=== PATIENT | female | born 1975 | race Caucasian/White ===

== ENCOUNTER → 2018-06-26 13:24 | Outpatient (CLI) | payer MEDICAID, SELFPAY ==
[2018-06-26 14:34] LABS: HCT 40.4 % (36.0-46.0); HGB 13.4 g/dL (12.0-15.5); Mean Corp. HGB Concentration 33.2 g/dL (32.0-36.0); Mean Corpuscular Hemoglobin 32.3 pg (27.0-33.0); Mean Corpuscular Volume 97.3 fL (80-95); Platelet Count 244 x1000/uL (130-400); RBC 4.15 m/cumm (4.00-5.20); RBC Distribution Width 13.6 % (11.7-14.6); White Blood Cell Count 9.68 k/cumm (4.4-10.8)
[2018-06-26 14:48] LABS: HCG Quant, Pregnancy 1 mIU/mL (1-3)
== END ==
PROVIDERS: PCP Family Medicine; Visit Provider Obstetrics & Gynecology
DX: N87.1 Moderate cervical dysplasia (principal)
CPT/HCPCS: 36415; 85027; 86850; 86900; 86901; 86920; 84702

== ENCOUNTER 2018-08-14 17:31 | Emergency (ER) | payer MEDICAID, SELFPAY ==
[2018-08-14 18:38] VITALS: BP 125/63; PULSE 105; RESP 22; TEMP 38.5; O2SAT 100
[2018-08-14 18:59] LABS: Bilirubin Negative (Negative); Blood Small (Negative); Clarity Sl Cloudy; Glucose Negative (Negative); Ketones 40 mg/dL (Negative); Leukocyte Esterase Small (Negative); Nitrite Negative (Negative); Specific Gravity 1.015 (1.005-1.025)
--- NOTE | 2018-08-14 19:06 | DI.RAD_ITS ---
SYMPTOMS/DIAGNOSIS: COUGH, SOB CHEST X-RAY, PA AND LATERAL: Comparison is 06/11/08. The heart is normal in size. The lungs are clear. The mediastinal structures and pleura appear intact. IMPRESSION: Normal chest.
[2018-08-14 19:12] LABS: Bacteria Few HPF (Negative); C & S Indicated? Yes; Casts Negative LPF (Negative); Crystals Negative HPF (Negative); Epithelial Cells Rare HPF (Negative); Mucus Negative (Negative); Other Cells Negative (Negative)
[2018-08-14] MEDS: Ketorolac 30 MG/ML VIAL IV (19:15)
[2018-08-14] MEDS: Normal Saline 1,000 ML 1000 ML IV ×2 (19:16→20:12)
[2018-08-14 19:17] LABS: Abs Immature Grans 0.06 k/cumm (0.0-0.09); Absolute Eosinophil Count 0.02 k/cumm (0.0-0.7); Absolute Monocyte Count 1.64 k/cumm (0.11-0.7); Basophils % 0.1; Eosinophils % 0.1; HCT 36.5 % (36.0-46.0); HGB 12.3 g/dL (12.0-15.5); Immature Grans % 0.4; Lymphocytes % 8.5; Mean Corp. HGB Concentration 33.7 g/dL (32.0-36.0); Mean Corpuscular Hemoglobin 32.4 pg (27.0-33.0); Mean Corpuscular Volume 96.1 fL (80-95); Monocytes % 9.6; Neutrophils % 81.3; Platelet Count 161 x1000/uL (130-400); RBC Distribution Width 13.2 % (11.7-14.6); White Blood Cell Count 17.04 k/cumm (4.4-10.8)
[2018-08-14 19:30] LABS: ALT 20 U/L (12-78); AST 11 U/L (15-37); Albumin 3.4 g/dL (3.4-5.0); Alkaline Phosphatase 80 U/L (46-116); Anion Gap 10.9 mmol/L (3-11); BUN 9 mg/dL (7-18); Bilirubin, Total 0.6 mg/dL (0.2-1.0); CO2 27.1 mmol/L (21.0-32.0); CREATININE 0.92 mg/dL (0.55-1.02); Calcium 9.3 mg/dL (8.5-10.1); Chloride 97 mmol/L (98-107); Glucose 101 mg/dL (70-100); Potassium 3.5 mmol/L (3.5-5.1); Sodium 135 mmol/L (136-145); Total Protein 7.7 g/dL (6.4-8.2)
[2018-08-14 19:32] LABS: Absolute Basophil Count 0.02 k/cumm (0.0-0.2); Absolute Lymphocyte Count 1.45 k/cumm (1.2-3.4); Absolute Neutrophil Count 13.85 k/cumm (1.2-6.7); Diff Comment Agrees w/ Instrument; RBC Morphology Normal
--- NOTE | 2018-08-14 19:43 | DI.VRAD_ITS ---
EXAM: XR Chest, 2 Views EXAM DATE/TIME: 08/14/2018 7:07 PM CLINICAL HISTORY: 42 years old, female; Signs and symptoms; Cough and fever TECHNIQUE: XR of the chest, 2 views. COMPARISON: No relevant prior studies available. FINDINGS: Lungs: Clear lungs. Pleural space: No pneumothorax. No sizable pleural effusion. Heart/Mediastinum: No cardiomegaly. Bones/joints: Unremarkable for patient's age. IMPRESSION: Clear lungs. Dictated and Authenticated by: Omar Lopez MD. Ordering:CORNELIO ARRIAGA MD
[2018-08-14 20:12] VITALS: TEMP 38.2
[2018-08-14 20:14] LABS: Lactate-non-spesis 0.7 mmol/L (0.6-1.4)
[2018-08-14 20:20] VITALS: TEMP 37.4
[2018-08-14] MEDS: Acetaminophen 500 MG TAB 1000 MG PO (20:20)
[2018-08-14 21:30] VITALS: BP 112/51; PULSE 88; RESP 16; TEMP 36.9; O2SAT 98
--- NOTE | 2018-08-14 21:59 | W.ED.GENAD ---
Discharge Plan Disposition Patient Disposition: HOME Condition: Good Discharge Details Chief Complaint: Fever Clinical Impression: UTI (urinary tract infection), URI (upper respiratory infection) Primary Care Provider: Maria Isabel Oswald V ED Provider: Terence Powell Home Meds and New Rx's Prescriptions: New cephalexin [Keflex] 500 mg capsule 500 mg PO BID Qty: 20 RF: 0 No Action loratadine 10 MG tablet,disintegrating 10 mg PO DAILY RF: 0 cholecalciferol (vitamin D3) 2,000 UNIT tablet 2,000 unit PO DAILY RF: 0 levonorgestrel [Mirena] 1 EACH intrauterine device 1 ea Intrauterine ONCE Qty: 1 RF: 0 fluoxetine 40 MG capsule 40 mg PO QAM RF: 0 ascorbic acid (vitamin C) [Vitamin C] 500 MG tablet 500 mg PO DAILY RF: 0 fluticasone [Flonase Allergy Relief] 9.9 ML spray,suspension 1 spray NS BID PRNRF: 0 ibuprofen 800 MG tablet 400 mg PO TID PRN PRNRF: 0 Discharge Instructions Instructions: Urinary Tract Infection in Women (ED), Upper Respiratory Infection (ED) Additional Instructions: Please drink 8-12 cups of water per day. Please take the antibiotic as directed. Please follow-up with your primary care provider tomorrow for reassessment. If you notice any worsening of your symptoms, or any new symptoms such as vomiting, diarrhea, fever, chills, shortness of breath, chest pain, numbness, weakness, or fainting , please return immediately to the emergency department for reevaluation. Please follow up with your primary care provider as soon as possible for reassessment and reevaluation. As always, it was a pleasure participating in your medical care today. Stand Alone Forms: Work Release Referrals: Maria Isabel Oswald MD [Primary Care Provider] - Medical Decision Making Potential with a past medical history of lupus who is on no DMARD's or immunocompromising agents for her lupus, and fibromyalgia who presents with 3 days of chills, mild sore throat, cough, with productive sputum. Initial physical exam demonstrates no significant abnormalities except for mild to moderate signs of dehydration, minimal referred rhonchorous upper breath sounds which are resolved with cough. She does show signs of mild congestion as well. No signs of meningitis, no evidence of abdominal or flank tenderness. Initial vital signs demonstrate mild tachycardia, mild fever. Laboratory workup does demonstrate an elevated white count at 17, no signs of bands. Normal electrolytes, renal function stable and normal. Urinalysis does demonstrate evidence of moderate urinary tract infection with small leuk esterase. Negative for nitrates. Chest x-ray per virtual radiology demonstrates clear lungs. No evidence of pneumonia. After rehydration and Toradol the patient's fever is normalized, her vital signs are stable, she is feeling much better. We did get Rocephin for her urinary tract infection. I discussed with her potential observation and admission versus discharge and the patient is requesting discharge which I do think is reasonable at this point. I feel the patient's symptoms are most likely from a viral upper respiratory infection, with an incidental urinary tract infection. We will treat for the UTI, we recommended continued hydration, Tylenol Motrin as needed, and prompt follow-up with her PCP tomorrow morning. The patient understands and agrees. No signs of meningitis, normal vital signs, no evidence of significant pneumonia, they feel that she is a reasonable candidate for discharge home. We discussed red flags for which to return. I have extensively reviewed the treatment plan and discharge instructions with the patient. I have addressed all patient concerns at this time. The patient was made aware of what symptoms to monitor for that would warrant a return to the emergency department. Discussed the plan with the patient, they demonstrate verbal understanding and agreement with our assessment and plan at this time. HPI General Date/Time Provider Initiated Documentation: 08/14/18 19:05. HPI Narrative: This is a 42-year-old female with a past medical history of fibromyalgia, lupus, recent uterine ablation. She presents today for evaluation of upper respiratory symptoms for the last 3 days. She states that for the last 3 days she has had chills, cough with productive sputum, runny nose, congestion, and a fever with a T-max of 103 at home. She denies any significant headache, or neck pain. She does admit to increased urinary frequency but denies any dysuria or hematuria. She does admit to other sick contacts at home and at her work. She has been drinking plenty of water over the last 2-3 days. She does admit to mild sore throat as well. Patient denies any vomiting, abdominal pain, diarrhea. She denies any chest pain or significant shortness of breath. She denies any recent antibiotic use, recent surgeries or procedures or long trips. Patient denies any IV or illicit drugs. She denies any other complaints at this time. Related Data Home Medications Medication Instructions Recorded Confirmed loratadine 10 mg PO DAILY tab-cap 03/21/13 08/14/18 cholecalciferol (vitamin D3) 2,000 unit PO DAILY 08/10/15 08/14/18 levonorgestrel [Mirena] 1 ea INTRAUTERINE ONCE #1 implant 05/30/18 08/14/18 ascorbic acid (vitamin C) [Vitamin 500 mg PO DAILY 06/22/18 08/14/18 C] fluoxetine 40 mg PO QAM 06/22/18 07/10/18 fluticasone [Flonase Allergy 1 spray NS BID PRN 06/22/18 08/14/18 Relief] cephalexin [Keflex] 500 mg PO BID #20 cap 08/14/18 ibuprofen 400 mg PO TID PRN PRN 08/14/18 08/14/18 Previous Rx's Medication Instructions Recorded cephalexin [Keflex] 500 mg PO BID #20 cap 08/14/18 Allergies Allergy/AdvReac Type Severity Reaction Status Date / Time SEASONAL ALLERGIES Allergy Mild CHEST Uncoded 08/14/18 18:45 CONGESTION, SNEEZING General Stated Complaint: Fever CHEMA: 2 Review of Systems Review of Systems All systems reviewed & are unremarkable except as noted in HPI and below PFSH Medical History ANKUSH II (cervical intraepithelial neoplasia II) (Acute) Hx LEEP (loop electrosurgical excision procedure), cervix, (Acute) Depressed (Chronic) Social History Smoking/Tobacco Use Status: Current every day tobacco type: cigarettes passive smoking exposure: Yes substance use type: marijuana seatbelt use: always Exam Narrative Exam Narrative: 1.Const: Well-nourished, Well-developed, appearing stated age 2.Eyes: PERRL, no conjunctival injection, and symmetrical lids. 3.ENT: Atraumatic external nose and ears. Dry MM. Neck: Symmetric, trachea midline, No thyromegaly. Patient demonstrates good movement of cervical neck. There is no nuchal rigidity, no nuchal tenderness. Patient is able to flex the neck without any difficulty or significant pain. Negative Kernig's and Brudzinski sign. Evidence of mild congestion. Mild erythema the posterior oropharynx. No evidence of tonsillar exudate. No signs of airway compromise. No evidence of peritonsillar abscess. 4.CVS: +S1/S2, No murmurs or gallops. Peripheral pulses 2+ and equal in all extremities. Brisk capillary refill in all extremities. 5.RESP: Unlabored respiratory effort. Clear to auscultation bilaterally. No wheezes rales or rhonchi. Minimal upper respiratory referred rhonchorous breath sounds are noted resolved with cough. 6.GI: Soft, Nontender/Nondistended, No hepatosplenomegaly. No guarding or rebound. No flank tenderness. 7.MSK: Normocephalic/Atraumatic, Extremities w/o deformity or ttp No cyanosis or clubbing, Normal movement of all extremities 8.Skin: Warm, Dry. No rashes or lesions. 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 Sensation grossly intact, no focal neurologic deficits. 10.Psych: (AAO) x3. Appropriate mood and affect Course Vital Signs Temperature 38.5 C H 08/14/18 18:38 Pulse 105 H 08/14/18 18:38 Respiratory Rate 22 08/14/18 18:38 Blood Pressure 125/63 08/14/18 18:38 Pulse Oximetry 100 08/14/18 18:38 Temperature 36.9 C 08/14/18 21:30 Temperature Source Skin 08/14/18 20:20 Pulse 88 08/14/18 21:30 Respiratory Rate 16 08/14/18 21:30 Respiratory Effort 08/14/18 18:40 Blood Pressure 112/51 L 08/14/18 21:30 Blood Pressure Position Supine 08/14/18 18:38 Pulse Oximetry 98 08/14/18 21:30 Oxygen Delivery Method Room Air 08/14/18 18:38 Oxygen Flow Rate 0 08/14/18 18:38 Pain Level 0 08/14/18 18:38 Lab/Test Results Lab/Test Results: 08/14/18 19:45 Blood Blood Culture - Pending 08/14/18 19:08 Blood Blood Culture - Pending 08/14/18 18:53 Urine - Reflex from Ua Urine Culture - Pending Laboratory Tests Range/Units 08/14/18 08/14/18 08/14/18 18:53 19:08 19:08 WBC (4.4-10.8) k/cumm 17.04 H RBC (4.00-5.20) m/cumm 3.80 L Hgb (12.0-15.5) g/dL 12.3 Hct (36.0-46.0) % 36.5 MCV (80-95) fL 96.1 H MCH (27.0-33.0) pg 32.4 MCHC (32.0-36.0) g/dL 33.7 RDW (11.7-14.6) % 13.2 Plt Count (130-400) x1000/uL 161 MPV (8.0-11.0) fL 11.0 Immature Gran % 0.4 Neutrophils % 81.3 Lymphocytes % 8.5 Monocytes % 9.6 Eosinophils % 0.1 Basophils % 0.1 Absolute Neutrophils (1.2-6.7) k/cumm 13.85 H Absolute Lymphocytes (1.2-3.4) k/cumm 1.45 Absolute Monocytes (0.11-0.7) k/cumm 1.64 H Absolute Eosinophils (0.0-0.7) k/cumm 0.02 Absolute Basophils (0.0-0.2) k/cumm 0.02 Differential Comment Agrees w/ instrument RBC Morphology Normal Sodium (136-145) mmol/L 135 L Potassium (3.5-5.1) mmol/L 3.5 Chloride (98-107) mmol/L 97 L Carbon Dioxide (21.0-32.0) mmol/L 27.1 Anion Gap (3-11) mmol/L 10.9 BUN (7-18) mg/dL 9 Creatinine (0.55-1.02) mg/dL 0.92 Estimated GFR/1.73 m2 (mL/min/1.73m2) >= 60.00 Glucose (70-100) mg/dL 101 H Lactate (0.6-1.4) mmol/L Calcium (8.5-10.1) mg/dL 9.3 Total Bilirubin (0.2-1.0) mg/dL 0.6 AST (15-37) U/L 11 L ALT (12-78) U/L 20 Alkaline Phosphatase (46-116) U/L 80 Total Protein (6.4-8.2) g/dL 7.7 Albumin (3.4-5.0) g/dL 3.4 Urine Color (Yellow) Yellow Urine Clarity Sl cloudy Urine pH (5-8) 8.0 Ur Specific [employer] (1.005-1.025) 1.015 Urine Protein (Negative) mg/dL 100 H Urine Ketones (Negative) mg/dL 40 H Urine Blood (Negative) Small H Urine Nitrite (Negative) Negative Urine Bilirubin (Negative) Negative Urine Urobilinogen (Up TO 0.2) EU/dL 4.0 H Ur Leukocyte Esterase (Negative) Small H Urine RBC (0-2) 3-5 H Urine WBC (0-5) HPF 10-20 Ur Epithelial Cells (Negative) HPF Rare Urine Crystals (Negative) HPF Negative Urine Bacteria (Negative) HPF Few Urine Casts (Negative) LPF Negative Urine Mucus (Negative) Negative Urine Other (Negative) Negative Ur Culture Indicated? Yes Urine Glucose (Negative) mg/dL Negative Range/Units 08/14/18 20:05 WBC (4.4-10.8) k/cumm RBC (4.00-5.20) m/cumm Hgb (12.0-15.5) g/dL Hct (36.0-46.0) % MCV (80-95) fL MCH (27.0-33.0) pg MCHC (32.0-36.0) g/dL RDW (11.7-14.6) % Plt Count (130-400) x1000/uL MPV (8.0-11.0) fL Immature Gran % Neutrophils % Lymphocytes % Monocytes % Eosinophils % Basophils % Absolute Neutrophils (1.2-6.7) k/cumm Absolute Lymphocytes (1.2-3.4) k/cumm Absolute Monocytes (0.11-0.7) k/cumm Absolute Eosinophils (0.0-0.7) k/cumm Absolute Basophils (0.0-0.2) k/cumm Differential Comment RBC Morphology Sodium (136-145) mmol/L Potassium (3.5-5.1) mmol/L Chloride (98-107) mmol/L Carbon Dioxide (21.0-32.0) mmol/L Anion Gap (3-11) mmol/L BUN (7-18) mg/dL Creatinine (0.55-1.02) mg/dL Estimated GFR/1.73 m2 (mL/min/1.73m2) Glucose (70-100) mg/dL Lactate (0.6-1.4) mmol/L 0.7 Calcium (8.5-10.1) mg/dL Total Bilirubin (0.2-1.0) mg/dL AST (15-37) U/L ALT (12-78) U/L Alkaline Phosphatase (46-116) U/L Total Protein (6.4-8.2) g/dL Albumin (3.4-5.0) g/dL Urine Color (Yellow) Urine Clarity Urine pH (5-8) Ur Specific [employer] (1.005-1.025) Urine Protein (Negative) mg/dL Urine Ketones (Negative) mg/dL Urine Blood (Negative) Urine Nitrite (Negative) Urine Bilirubin (Negative) Urine Urobilinogen (Up TO 0.2) EU/dL Ur Leukocyte Esterase (Negative) Urine RBC (0-2) Urine WBC (0-5) HPF Ur Epithelial Cells (Negative) HPF Urine Crystals (Negative) HPF Urine Bacteria (Negative) HPF Urine Casts (Negative) LPF Urine Mucus (Negative) Urine Other (Negative) Ur Culture Indicated? Urine Glucose (Negative) mg/dL
== END 2018-08-14 21:20 | disposition home or self-care (01) ==
PROVIDERS: Emergency Provider Student in an Organized Health Care Education/Training Program; PCP Family Medicine
DX: N39.0 Urinary tract infection, site not specified (principal); J06.9 Acute upper respiratory infection, unspecified; B96.20 Unspecified Escherichia coli [E. coli] as the cause of diseases classified elsewhere; F17.210 Nicotine dependence, cigarettes, uncomplicated
CPT/HCPCS: 36415; 80053; 87040; 87077; 96361; 96365; 96375; 99284; 71046; 81003; 81015; 83605; 85025; 87086; 87186; 99285; J0696; J1885

== ENCOUNTER 2018-09-10 08:31 | Emergency (ER) | payer MEDICAID, SELFPAY ==
[2018-09-10 08:36] VITALS: BP 138/98; PULSE 87; RESP 18; TEMP 36.6; O2SAT 97
--- NOTE | 2018-09-10 08:44 | NUR.NOTE ---
pt. placed in mask.
--- NOTE | 2018-09-10 09:14 | W.ED.GENAD ---
Discharge Plan Disposition Patient Disposition: HOME Condition: Stable Discharge Details Chief Complaint: RespSymp Clinical Impression: Otitis media of right ear, URI (upper respiratory infection) Primary Care Provider: Maria Isabel Oswald V ED Provider: Sanket Wellington Home Meds and New Rx's Prescriptions: New amoxicillin 875 mg tablet 875 mg PO BID Qty: 14 RF: 0 Continue loratadine 10 MG tablet,disintegrating 10 mg PO DAILY RF: 0 cholecalciferol (vitamin D3) 2,000 UNIT tablet 2,000 unit PO DAILY RF: 0 levonorgestrel [Mirena] 1 EACH intrauterine device 1 ea Intrauterine ONCE Qty: 1 RF: 0 fluoxetine 40 MG capsule 40 mg PO QAM RF: 0 ascorbic acid (vitamin C) [Vitamin C] 500 MG tablet 500 mg PO DAILY RF: 0 fluticasone [Flonase Allergy Relief] 9.9 ML spray,suspension 1 spray NS BID PRNRF: 0 ibuprofen 800 MG tablet 400 mg PO TID PRN PRNRF: 0 Discontinued cephalexin [Keflex] 500 mg capsule 500 mg PO BID Qty: 20 RF: 0 Discharge Instructions Instructions: Otitis Media (ED), Upper Respiratory Infection (ED) Additional Instructions: Please feel free to return the emergency department for any new or significant worsening of symptoms. Otherwise take your antibiotics as prescribed and for the full 7 days and follow-up with your primary care as needed for reassessment Stand Alone Forms: Work Release Referrals: Maria Isabel Oswald MD [Primary Care Provider] - (As needed for reassessment if not improving by the end of your antibiotic course) Medical Decision Making Patient presenting to the emergency department for 3 days of nasal congestion, malaise, right ear pain, and sore throat. Patient has history of lupus and does state that she had a viral illness a month ago that resolved in 1 week and has been feeling good for the past couple weeks but on Monday she started feeling ill again. staffing associate initiated protocol for rapid strep testing which was reviewed and is negative. Physical exam does show nasal congestion, right bulging erythematous TM and mild anterior cervical lymphadenopathy otherwise unremarkable examination. No signs of pneumonia on auscultation of the lungs. Given patient has used Motrin over the past 3 days and still having earache with positive symptoms for otitis media patient placed upon amoxicillin. Patient encouraged to return for any new or significant worsening of symptoms otherwise to follow-up with primary care provider for reassessment if not improving. After discussion of diagnosis and plan of care patient has no further needs, questions, or concerns and states clear understanding to return to the emergency department for any worsening symptoms. Lab Data Lab results reviewed: Yes I reviewed the patient's lab results. HPI General Mode of arrival: ambulatory. Date/Time Provider Initiated Documentation: 09/10/18 09:01. Limitations to Documentation: no limitations. Information obtained by: RN notes reviewed and old records reviewed. History of Present Illness 42 year old F presents to the emergency department with the chief complaint of Cold symptoms, described as mild, with intensity rated at 4. Quality is described as aching, and is localized to the right (ear). Patient reports no radiation. Patient started experiencing this day(s) (4) and it has been constant. No relieving factors improve symptom(s), Patient notes no other symptoms.. Patient did receive the following treatments prior to arrival, NSAID Related Data Home Medications Medication Instructions Recorded Confirmed loratadine 10 mg PO DAILY tab-cap 03/21/13 09/10/18 cholecalciferol (vitamin D3) 2,000 unit PO DAILY 08/10/15 09/10/18 levonorgestrel [Mirena] 1 ea INTRAUTERINE ONCE #1 implant 05/30/18 09/10/18 ascorbic acid (vitamin C) [Vitamin 500 mg PO DAILY 06/22/18 09/10/18 C] fluoxetine 40 mg PO QAM 06/22/18 09/10/18 fluticasone [Flonase Allergy 1 spray NS BID PRN 06/22/18 09/10/18 Relief] ibuprofen 400 mg PO TID PRN PRN 08/14/18 09/10/18 amoxicillin 875 mg PO BID #14 tab 09/10/18 Previous Rx's Medication Instructions Recorded amoxicillin 875 mg PO BID #14 tab 09/10/18 Allergies Allergy/AdvReac Type Severity Reaction Status Date / Time SEASONAL ALLERGIES Allergy Mild CHEST Uncoded 08/14/18 18:45 CONGESTION, SNEEZING General Stated Complaint: RespSymp CHEMA: 4 Review of Systems Constitutional Denies body ache(s), Denies chills, Denies fever(s), Denies headache(s) and Reports malaise Eyes Denies eye discharge ENT Denies ear discharge, Reports otalgia, Denies headache(s), Reports nasal congestion, Denies neck pain, Reports sinus pressure, Reports sore throat and Denies throat swelling Cardiovascular Denies chest pain and Denies dyspnea Respiratory Denies cough and Denies dyspnea Musculoskeletal Denies joint swelling and Denies neck pain Integumentary/Breasts Denies rash Neurologic Denies headache(s) Allergic/Immunologic Denies throat swelling [facility] Medical History ANKUSH II (cervical intraepithelial neoplasia II) (Acute) Hx LEEP (loop electrosurgical excision procedure), cervix, (Acute) Depressed (Chronic) Social History Smoking/Tobacco Use Status: Current every day tobacco type: cigarettes passive smoking exposure: Yes substance use type: marijuana seatbelt use: always Exam Const General: cooperative, comfortable and no acute distress Orientation: alert and awake HENMT Head: normal to inspection, normocephalic and atraumatic Ears: hearing grossly normal bilaterally, TM normal on the left, mastoids normal, no periauricular adenopathy and TM abnormal bulging on the right, erythematous on the right and with loss of landmarks on the right General nose exam: external nose normal and nares normal Face and sinus: normal facial exam, sinuses nontender and no erythema Mouth: oral mucosae normal, no drooling, no muffled voice and no trismus Throat: posterior oropharynx normal, tonsils normal and uvula midline Neck Neck: normal visual inspection, full ROM, no meningeal signs, trachea midline, supple and lymphadenopathy Resp Effort & Inspection: normal respiratory effort and able to speak in complete sentences Auscultation: clear to auscultation bilaterally Cardio Rate: regular rate Rhythm: regular rhythm Heart Sounds: S1 normal, S2 normal, normal S1 and S2, no click, no gallops, no murmurs and no rubs Skin General skin exam: no rashes or lesions noted and dry skin (warm) Neuro General: alert, awake, oriented x3, gait normal and moves all extremities Cognition: normal cognition Speech: speech normal Course Vital Signs Temperature 36.6 C 09/10/18 08:36 Pulse 87 09/10/18 08:36 Respiratory Rate 18 09/10/18 08:36 Blood Pressure 138/98 H 09/10/18 08:36 Pulse Oximetry 97 09/10/18 08:36 Temperature 36.6 C 09/10/18 08:36 Temperature Source Temporal Artery Scan 09/10/18 08:36 Pulse 87 09/10/18 08:36 Respiratory Rate 18 09/10/18 08:36 Respiratory Effort 09/10/18 09:01 Blood Pressure 138/98 H 09/10/18 08:36 Pulse Oximetry 97 09/10/18 08:36 Oxygen Delivery Method Room Air 09/10/18 08:36 Oxygen Flow Rate 0 09/10/18 08:36 Pain Level 4 09/10/18 08:36 Lab/Test Results Lab/Test Results: 09/10/18 09:11 Pharynx Streptococcus Screen ([facility]) - Pending POC Strep Test-BRAD(Rapid) Start: 09/10/18 08:45 Freq: .Rapid Strep Test Status: Active Protocol: Document 09/10/18 09:06 GO (Rec: 09/10/18 09:06 GO [id number]) Strep test-BRAD(Rapid)-POC POC-Strep test-BRAD (Rapid) Negative POC-Strep test-BRAD (Rapid) Negative
--- NOTE | 2018-09-10 09:22 | ED.GENADUL_ITS ---
Discharge Plan Disposition Patient Disposition: HOME Condition: Stable Discharge Details Chief Complaint: RespSymp Clinical Impression: Otitis media of right ear, URI (upper respiratory infection) Primary Care Provider: Maria Isabel Oswald V ED Provider: Sanket Wellington Home Meds and New Rx's Prescriptions: New amoxicillin 875 mg tablet 875 mg PO BID Qty: 14 RF: 0 Continue loratadine 10 MG tablet,disintegrating 10 mg PO DAILY RF: 0 cholecalciferol (vitamin D3) 2,000 UNIT tablet 2,000 unit PO DAILY RF: 0 levonorgestrel [Mirena] 1 EACH intrauterine device 1 ea Intrauterine ONCE Qty: 1 RF: 0 fluoxetine 40 MG capsule 40 mg PO QAM RF: 0 ascorbic acid (vitamin C) [Vitamin C] 500 MG tablet 500 mg PO DAILY RF: 0 fluticasone [Flonase Allergy Relief] 9.9 ML spray,suspension 1 spray NS BID PRNRF: 0 ibuprofen 800 MG tablet 400 mg PO TID PRN PRNRF: 0 Discontinued cephalexin [Keflex] 500 mg capsule 500 mg PO BID Qty: 20 RF: 0 Discharge Instructions Instructions: Otitis Media (ED), Upper Respiratory Infection (ED) Additional Instructions: Please feel free to return the emergency department for any new or significant worsening of symptoms. Otherwise take your antibiotics as prescribed and for the full 7 days and follow-up with your primary care as needed for reassessment Stand Alone Forms: Work Release Referrals: Maria Isabel Oswald MD [Primary Care Provider] - (As needed for reassessment if not improving by the end of your antibiotic course) Medical Decision Making Patient presenting to the emergency department for 3 days of nasal congestion, malaise, right ear pain, and sore throat. Patient has history of lupus and does state that she had a viral illness a month ago that resolved in 1 week and has been feeling good for the past couple weeks but on Monday she started feeling ill again. public health staff nurse initiated protocol for rapid strep testing which was reviewed and is negative. Physical exam does show nasal congestion, right bulging erythematous TM and mild anterior cervical lymphadenopathy otherwise unremarkable examination. No signs of pneumonia on auscultation of the lungs. Given patient has used Motrin over the past 3 days and still having earache with positive symptoms for otitis media patient placed upon amoxicillin. Patient encouraged to return for any new or significant worsening of symptoms otherwise to follow-up with primary care provider for reassessment if not improving. After discussion of diagnosis and plan of care patient has no further needs, questions, or concerns and states clear understanding to return to the emergency department for any worsening symptoms. Lab Data Lab results reviewed: Yes I reviewed the patient's lab results. HPI General Mode of arrival: ambulatory . Date/Time Provider Initiated Documentation: 09/10/18 09:01 . Limitations to Documentation: no limitations . Information obtained by: RN notes reviewed and old records reviewed . History of Present Illness 42 year old F presents to the emergency department with the chief complaint of Cold symptoms, described as mild, with intensity rated at 4. Quality is described as aching, and is localized to the right (ear). Patient reports no radiation. Patient started experiencing this day(s) (4) and it has been constant. No relieving factors improve symptom(s), Patient notes no other symptoms.. Patient did receive the following treatments prior to arrival, NSAID Related Data Home Medications Medication Instructions Recorded Confirmed loratadine 10 mg PO DAILY tab-cap 03/21/13 09/10/18 cholecalciferol (vitamin D3) 2,000 unit PO DAILY 08/10/15 09/10/18 levonorgestrel [Mirena] 1 ea INTRAUTERINE ONCE #1 implant 05/30/18 09/10/18 ascorbic acid (vitamin C) [Vitamin 500 mg PO DAILY 06/22/18 09/10/18 C] fluoxetine 40 mg PO QAM 06/22/18 09/10/18 fluticasone [Flonase Allergy 1 spray NS BID PRN 06/22/18 09/10/18 Relief] ibuprofen 400 mg PO TID PRN PRN 08/14/18 09/10/18 amoxicillin 875 mg PO BID #14 tab 09/10/18 Previous Rx's Medication Instructions Recorded amoxicillin 875 mg PO BID #14 tab 09/10/18 Allergies Allergy/AdvReac Type Severity Reaction Status Date / Time SEASONAL ALLERGIES Allergy Mild CHEST Uncoded 08/14/18 18:45 CONGESTION, SNEEZING General Stated Complaint: RespSymp CHEMA: 4 Review of Systems Constitutional Denies body ache(s), Denies chills, Denies fever(s), Denies headache(s) and Reports malaise Eyes Denies eye discharge ENT Denies ear discharge, Reports otalgia, Denies headache(s), Reports nasal congestion, Denies neck pain, Reports sinus pressure, Reports sore throat and Denies throat swelling Cardiovascular Denies chest pain and Denies dyspnea Respiratory Denies cough and Denies dyspnea Musculoskeletal Denies joint swelling and Denies neck pain Integumentary/Breasts Denies rash Neurologic Denies headache(s) Allergic/Immunologic Denies throat swelling [facility] Medical History ANKUSH II (cervical intraepithelial neoplasia II) (Acute) Hx LEEP (loop electrosurgical excision procedure), cervix, (Acute) Depressed (Chronic) Social History Smoking/Tobacco Use Status: Current every day tobacco type: cigarettes passive smoking exposure: Yes substance use type: marijuana seatbelt use: always Exam Const General: cooperative, comfortable and no acute distress Orientation: alert and awake HENMT Head: normal to inspection, normocephalic and atraumatic Ears: hearing grossly normal bilaterally, TM normal on the left, mastoids normal , no periauricular adenopathy and TM abnormal bulging on the right, erythematous on the right and with loss of landmarks on the right General nose exam: external nose normal and nares normal Face and sinus: normal facial exam, sinuses nontender and no erythema Mouth: oral mucosae normal, no drooling, no muffled voice and no trismus Throat: posterior oropharynx normal, tonsils normal and uvula midline Neck Neck: normal visual inspection, full ROM, no meningeal signs, trachea midline, supple and lymphadenopathy Resp Effort & Inspection: normal respiratory effort and able to speak in complete sentences Auscultation: clear to auscultation bilaterally Cardio Rate: regular rate Rhythm: regular rhythm Heart Sounds: S1 normal, S2 normal, normal S1 and S2, no click, no gallops, no murmurs and no rubs Skin General skin exam: no rashes or lesions noted and dry skin (warm) Neuro General: alert, awake, oriented x3, gait normal and moves all extremities Cognition: normal cognition Speech: speech normal Course Vital Signs Temperature 36.6 C 09/10/18 08:36 Pulse 87 09/10/18 08:36 Respiratory Rate 18 09/10/18 08:36 Blood Pressure 138/98 H 09/10/18 08:36 Pulse Oximetry 97 09/10/18 08:36 Temperature 36.6 C 09/10/18 08:36 Temperature Source Temporal Artery Scan 09/10/18 08:36 Pulse 87 09/10/18 08:36 Respiratory Rate 18 09/10/18 08:36 Respiratory Effort 09/10/18 09:01 Blood Pressure 138/98 H 09/10/18 08:36 Pulse Oximetry 97 09/10/18 08:36 Oxygen Delivery Method Room Air 09/10/18 08:36 Oxygen Flow Rate 0 09/10/18 08:36 Pain Level 4 09/10/18 08:36 Lab/Test Results Lab/Test Results: 09/10/18 09:11 Pharynx Streptococcus Screen (ELIZABETH) - Pending POC Strep Test-BRAD(Rapid) Start: 09/10/18 08: 45 Freq: .Rapid Strep Test Status: Active Protocol: Document 09/10/18 09:06 GO (Rec: 09/10/18 09:06 GO [email or web address]) Strep test-BRAD(Rapid)-POC POC-Strep test-BRAD (Rapid) Negative POC-Strep test-BRAD (Rapid) Negative
[2018-09-10 09:29] VITALS: BP 135/80; PULSE 88; RESP 18; TEMP 36.8; O2SAT 99
== END 2018-09-10 10:00 | disposition home or self-care (01) ==
PROVIDERS: Emergency Provider Nurse Practitioner Family; PCP Family Medicine
DX: H66.91 Otitis media, unspecified, right ear (principal); J06.9 Acute upper respiratory infection, unspecified; F17.210 Nicotine dependence, cigarettes, uncomplicated
CPT/HCPCS: 87880; 99283; 87081

== ENCOUNTER 2019-12-30 10:45 | Outpatient (REF) | payer MEDICAID, SELFPAY ==
--- NOTE | 2019-12-30 09:00 | PAPFT_PTH ---
PATIENT: Alessia Harkins LOC: N U#:[id number] AGE/SX: 44/F ROOM: RE12/30/[address]: Malathi Bates NP : 1975 BED: DIS: 12/30/2019 SPEC #: [id number] RECD: 12/30/19 13:03 STATUS: RAMIRO FRENCH #: [id number] SONIA: 12/30/19 09:[address]: Malathi Bates NP [facility] Cytology RECD BY: Catie Burton ENTERED: 12/30/19 13:04 SP TYPE: PAPFT OTHR DR: Maria Isabel Oswald V Tissues: 1 - CX/ENDOCX FOR PAP SMEARS Procedures: PAP THIN PREP/UVM Screening HPV DNA PROBE Comments: [id number] (CHLAMYDIA/GC)
[2019-12-31 12:55] LABS: Chlamydia Result Negative (Negative); GC Result Negative (Negative)
== END 2019-12-30 11:05 ==
LOC: LBN 10:45
PROVIDERS: PCP Family Medicine; Visit Provider Nurse Practitioner Women's Health
DX: Z12.4 Encounter for screening for malignant neoplasm of cervix (principal); Z11.51 Encounter for screening for human papillomavirus (HPV)
CPT/HCPCS: 87491; 87591; 88142; 87624

== ENCOUNTER 2020-05-22 07:41 | Outpatient (CLI) | payer MEDICAID, SELFPAY ==
--- NOTE | 2020-05-22 13:00 | DI.MAMMO_ITS ---
EXAM: MAMMO SCREENING CLINICAL HISTORY: screening,Z12.39 TECHNIQUE: Mammograms were interpreted according to the usual protocol including computer analysis w [employer] CAD system, tomosynthesis and C-view imaging. COMPARISON: FINDINGS: The breasts are of moderate density with fairly symmetrical distribution of fibroglandular tissue. N o dominant mass or clumped microcalcification is identified in either breast. Current examination is compared with previous examinations of November 2017 and August 2015 and there is question of increa sed prominence areas asymmetric density in right breast seen on both CC and MLO views, in the retroar eolar mid breast on the CC view and in the superior mid breast on the MLO view. Additional mammograp hic views are requested to evaluate these areas to exclude a mass. No additional significant changes. IMPRESSION: Additional mammographic views of the right breast requested as described above. Breast ultrasound m ay be indicated as well depending on the results of the additional mammographic views. BI-RADS Cat 0 - Assessment Incomplete: Need additional imaging evaluation Breast Density - Category B - Scattered areas of fibroglandular density
== END 2020-05-22 08:01 ==
PROVIDERS: PCP Family Medicine; Visit Provider Nurse Practitioner Women's Health
DX: R92.2 Inconclusive mammogram
CPT/HCPCS: 77063; 77067

== ENCOUNTER 2020-05-29 04:06 | Outpatient (CLI) | payer MEDICAID, SELFPAY ==
--- NOTE | 2020-05-29 | DI.MAMMO_ITS ---
EXAM: MG MAMMO SCREEN CALL BACK UNI CLINICAL HISTORY: F/U ABNL MAMMO, ?INCREASED PROMINENCE ASYMMETRIC DENSITY,R92.8. TECHNIQUE: Craniocaudal and mediolateral oblique Full Field Digital Mammography views of the right b reast with Computer Aided Diagnosis followed by Tomosynthesis and right breast ultrasound. COMPARISON: Priors available for comparison. FINDINGS: Mammography/Tomosynthesis: Masses/Architectural Distortion: None seen. Microcalcifictions: No suspicious pleomorphic-type are seen. Skin Thickening/Nipple Retraction: None. Right breast US: Echotexture: Normal appearance of the glandular tissue. Shadowing: No suspicious foci. Cyst: None. Solid lesions: None seen. Ductal dilation: None. IMPRESSION: 1. No evidence of malignancy is noted. 2. Unless there is more urgent need, follow-up screening mammography is recommended, as per [employer] guidelines. 3. The findings were discussed with the patient on the date of the examination. BI-RADS Cat 1 - Negative Breast Density - Category B - Scattered areas of fibroglandular density A negative radiographic report should not delay biopsy if a dominant or clinically suspicious mass is present. Up to ten percent of cancers are not identified on mammography. A negative report may reinforce clinical impression. Adenosis and dense breasts may obscure an underlying neoplasm. False positive reports average 6 to 10%. Patient will receive a letter notifying them of these results.
== END 2020-05-29 04:26 ==
PROVIDERS: PCP Family Medicine; Visit Provider Nurse Practitioner Women's Health
DX: Z12.39 Encounter for other screening for malignant neoplasm of breast (principal)
CPT/HCPCS: 76642; 77063; 77067

== ENCOUNTER 2021-01-08 02:29 | Outpatient (CLI) | payer MEDICAID, SELFPAY ==
[2021-01-08 09:53] LABS: Abs Immature Grans 0.03 10^3/uL (0.0-0.06); Absolute Basophil Count 0.03 10^3/uL (0.0-0.2); Absolute Eosinophil Count 0.08 10^3/uL (0.0-0.7); Absolute Lymphocyte Count 2.02 10^3/uL (1.2-3.4); Absolute Monocyte Count 0.49 10^3/uL (0.1-0.8); Absolute Neutrophil Count 4.69 10^3/uL (1.2-6.7); Basophils % 0.4; Eosinophils % 1.1; HCT 40.9 % (36.0-46.0); HGB 13.3 g/dL (11.2-15.7); Immature Grans % 0.4; Lymphocytes % 27.5; MCH 31.5 pg (27.0-33.0); MCHC 32.5 % (32.0-36.0); MCV 96.9 fL (80-95); MPV 10.5 fL (8.0-11.0); Monocytes % 6.7; Neutrophils % 63.9; Nucleated RBC 0 %; Platelet Count 246 10^3/uL (130-400); RBC 4.22 10^6/uL (3.93-5.22); RDW 13.1 % (11.7-14.6); RDW-SD 46.9 fL; WBC 7.34 10^3/uL (4.4-10.8)
[2021-01-08 10:43] LABS: ALT 19 U/L (14-59); AST 9 U/L (15-37); Albumin 4.2 g/dL (3.4-5.0); Alkaline Phosphatase 68 U/L (46-116); Anion Gap 8.6 mmol/L (3-11); BUN 19 mg/dL (7-18); Bilirubin, Total 0.4 mg/dL (0.2-1.0); C-Reactive Protein 0.09 mg/dL (0.0-0.3); CO2 28.4 mmol/L (21.0-32.0); CREATININE 0.7 mg/dL (0.55-1.02); Calcium 9.1 mg/dL (8.5-10.1); Chloride 102 mmol/L (98-107); Glucose 95 mg/dL (74-106); Potassium 4.5 mmol/L (3.5-5.1); Sodium 139 mmol/L (136-145); Total Protein 7.5 g/dL (6.4-8.2)
== END 2021-01-08 02:30 | disposition home or self-care (01) ==
LOC: LBO 02:29
PROVIDERS: PCP Family Medicine; Visit Provider Internal Medicine Rheumatology
DX: M25.541 Pain in joints of right hand (principal); M25.542 Pain in joints of left hand; M54.5 Low back pain; G89.29 Other chronic pain
CPT/HCPCS: 36415; 80053; 85025; 86140

== ENCOUNTER 2021-01-08 03:56 | Outpatient (CLI) | payer MEDICAID, SELFPAY ==
--- NOTE | 2021-01-08 | DI.RAD_ITS ---
EXAM: XR HAND LT COMPLETE CLINICAL HISTORY: ARTHRALGIA BOTH HANDS, M25.541,M25.542. TECHNIQUE: 2D digital imaging was performed. COMPARISON: No exams were available for comparison FINDINGS: BONES: No acute fracture is present. No bony destructive lesion is seen. JOINTS: No dislocation present. The joint spaces are unremarkable. No erosions or joint space narrow ing is present. SOFT TISSUE: Normal. No soft tissue calcification or swelling is noted. IMPRESSION: Unremarkable radiographs of the left hand. DATA REPOSITORY: RADIATION DOSE DELIVERED:
--- NOTE | 2021-01-08 09:30 | DI.RAD_ITS ---
EXAM: XR LUMBAR SPINE COMPLETE CLINICAL HISTORY: CHRONIC LOW BACK PAIN, M54.5,PAIN IN JOINTS, M25.50. TECHNIQUE: 2D digital imaging was performed. COMPARISON: No exams were available for comparison FINDINGS: There is a mild left convex thoracolumbar scoliosis. There are 5 lumbar type vertebral bodies. No s pondylolysis or spondylolisthesis is present. Endplate osteophytes are seen at T12-L1, L2-L3 and L5- S1. There is disc space narrowing at L5-S1. No acute fractures or subluxations are present. The gladys emma are normally mineralized. IMPRESSION: Mild degenerative changes in the lumbar spine. DATA REPOSITORY: RADIATION DOSE DELIVERED:
--- NOTE | 2021-01-08 09:30 | DI.RAD_ITS ---
EXAM: XR PELVIS W OBLIQUES 3V CLINICAL HISTORY: CHRONIC LOW BACK PAIN,M54.5,PAIN MULTIPLE JOINTS,M25.50,G89.29. TECHNIQUE: 2D digital imaging was performed. COMPARISON: No exams were available for comparison FINDINGS: BONES: No acute fracture is present. No bony destructive lesion is seen. JOINTS: No dislocation present. No joint space narrowing is present. No ankylosis or erosions of the sacroiliac joints are noted. SOFT TISSUE: Normal. An IUD is seen in the pelvis. IMPRESSION: Unremarkable radiographs of the pelvis. DATA REPOSITORY: RADIATION DOSE DELIVERED:
--- NOTE | 2021-01-08 09:30 | DI.RAD_ITS ---
EXAM: XR HAND RT COMPLETE CLINICAL HISTORY: ATHRALGIA BOTH HANDS, M25.541,M25.542. TECHNIQUE: 2D digital imaging was performed. COMPARISON: No exams were available for comparison FINDINGS: BONES: No acute fracture is present. No bony destructive lesion is seen. JOINTS: No dislocation present. The joint spaces have a normal appearance. No erosions or joint spac e narrowing is seen. SOFT TISSUE: Normal. No soft tissue calcifications or swelling is noted. IMPRESSION: Unremarkable radiographs of the right hand. DATA REPOSITORY: RADIATION DOSE DELIVERED:
== END 2021-01-08 04:16 ==
PROVIDERS: PCP Family Medicine; Visit Provider Internal Medicine Rheumatology
DX: M54.5 Low back pain (principal); G89.29 Other chronic pain; M47.816 Spondylosis without myelopathy or radiculopathy, lumbar region; M25.541 Pain in joints of right hand; M25.542 Pain in joints of left hand
CPT/HCPCS: 72110; 72190; 73130

== ENCOUNTER 2021-04-06 10:33 | Outpatient (REF) | payer MEDICAID, SELFPAY ==
--- NOTE | 2021-04-06 10:15 | PAPFT_PTH ---
PATIENT: Alessia Harkins LOC: [facility] U#:[id number] AGE/SX: 45/F ROOM: RE04/06/[address]: SANDOVAL Meadows : 1975 BED: DIS: 04/06/2021 SPEC #: [id number] RECD: 04/06/21 13:04 STATUS: RAMIRO RENeelam #: [id number] SONIA: 04/06/21 10:[address]: Marilin Benitez DEPT: [facility] Cytology RECD BY: Catie Burton ENTERED: 04/06/21 13:04 SP TYPE: PAPFT OTHR DR: Maria Isabel Oswald V Tissues: 1 - CX/ENDOCX FOR PAP SMEARS Procedures: PAP THIN PREP/[facility] Screening HPV DNA PROBE Comments: [id number]
== END 2021-04-06 10:34 | disposition home or self-care (01) ==
LOC: LBN 10:33
PROVIDERS: PCP Family Medicine; Visit Provider Nurse Practitioner Family
DX: Z12.4 Encounter for screening for malignant neoplasm of cervix (principal); Z87.410 Personal history of cervical dysplasia; Z11.51 Encounter for screening for human papillomavirus (HPV)
CPT/HCPCS: 88142; 87624

== ENCOUNTER 2021-05-25 01:57 | Outpatient (CLI) | payer MEDICAID, SELFPAY ==
--- NOTE | 2021-05-25 11:00 | DI.MAMMO_ITS ---
Exam(s) MAMMO SCREENING EXAM: MAMMO SCREENING CLINICAL HISTORY: screening TECHNIQUE: Mammograms were interpreted according to the usual protocol including computer analysis w [employer] CAD system, tomosynthesis and C-view imaging. COMPARISON: 2014 through 2019 FINDINGS: The breasts are composed of scattered fibroglandular densities, Breast Density category B. No suspicious masses or suspicious microcalcifications are seen. No skin thickening or abnormal axillary lymph nodes are seen. There has been no significant change from prior exams. IMPRESSION: BI-RADS Category 1, Negative mammogram Yearly screening mammography is recommended. Breast Density - Category B, scattered fibroglandular densities. A negative radiographic report should not delay biopsy if a dominant or clinically suspicious mass is present. Up to ten percent of cancers are not identified on mammography. A negative report may reinforce clinical impression. Adenosis and dense breasts may obscure an underlying neoplasm. False positive reports average 6 to 10%. Patient will receive a letter notifying them of these results.
== END 2021-05-25 02:17 ==
PROVIDERS: PCP Family Medicine; Visit Provider Nurse Practitioner Family
DX: Z12.31 Encounter for screening mammogram for malignant neoplasm of breast (principal); R92.8 Other abnormal and inconclusive findings on diagnostic imaging of breast
CPT/HCPCS: 77063; 77067

== ENCOUNTER 2022-01-30 12:06 | Emergency (ER) | payer MEDICAID, SELFPAY ==
[2022-01-30 12:10] VITALS: BP 144/70; PULSE 78; RESP 18; TEMP 36.5; O2SAT 100
--- NOTE | 2022-01-30 13:04 | ED.GENADUL_ITS ---
Discharge Plan Disposition Patient Disposition: HOME Condition: Stable Discharge Details Clinical Impression: Lumbar strain Primary Care Provider: Maria Isabel Oswald V ED Provider: Ava Lunsford Home Meds and New Rx's Prescriptions: New methocarbamol 500 mg tablet 500 mg PO Q6H PRN (Reason: muscle spasm) Qty: 14 0RF Continued loratadine 10 MG tablet,disintegrating 10 mg PO DAILY 0RF cholecalciferol (vitamin D3) 2,000 UNIT tablet 2,000 unit PO DAILY 0RF Mirena 1 EACH intrauterine device 1 ea Intrauterine ONCE Qty: 1 0RF fluoxetine 40 MG capsule 40 mg PO QAM 0RF ascorbic acid (vitamin C) [Vitamin C] 500 MG tablet 500 mg PO DAILY 0RF fluticasone propionate [Flonase Allergy Relief] 9.9 ML spray,suspension 1 spray NS BID PRN0RF meloxicam 15 mg tablet 15 mg PO DAILY 0RF Label Comments: TAKE ONE TABLET BY MOUTH EVERY DAY gabapentin 300 mg capsule 300 mg PO HS 0RF Label Comments: TAKE ONE CAPSULE BY MOUTH AT BEDTIME Discharge Instructions Instructions: Low Back Strain (ED) Additional Instructions: Alternate ice and heat to the affected area(s) several times daily for 20 minutes at a time. Continue to take your meloxicam daily as directed. You can take 500 mg of Tylenol every 4 hours as needed and directed for pain. You are being sent home with a prescription for the muscle relaxer methocarbamol to take as needed and directed. You are also being sent home with 2 tabs of tramadol to take as needed for pain not relieved with Tylenol, methocarbamol or your meloxicam. Call your primary care doctor tomorrow morning to schedule a follow-up appointment for reevaluation in the next week. Return immediately to the emergency department if you develop any worsening or new concerning symptoms such as worsening pain, difficulty urinating, leg weakness or numbness or any other concerns. Discharge Data Discharge Date/Time-TO BE ENTERED AT DEPARTURE: 01/30/22 13:59 Discharge Physician: Ava Lunsford Medical Decision Making 46-year-old female with a history of lupus on daily meloxicam presents for right-sided lower back pain after bending, twisting and lifting a lightweight bath mat at home yesterday. No cauda equina symptoms. Vitals within normal limits. Patient appears slightly uncomfortable but otherwise nontoxic. She has reproducible tenderness to palpation to her right paraspinal lumbar region and right upper buttock. She appears uncomfortable with movement. She otherwise has no focal deficits and is neurovascularly intact. History and presentation appears most likely consistent with muscle strain. Sciatica and lumbar disc herniation appears less likely as she has no radicular symptoms. History and presentation does not appear consistent with cauda equina syndrome. Do not see an indication for lab work or imaging at this time and patient is agreeable. Will give a dose of Toradol and muscle relaxers here and plan for discharge with muscle relaxers and continued meloxicam. Patient offered steroids but she declined. She is agreeable with plan to hold on narcotics at this time. She is advised to alternate ice and heat. Advised to follow up with the primary care doctor for re-evaluation. Usual and customary return precautions given prior to discharge. Medical Records Medical records reviewed: Yes I reviewed the patient's medical records. HPI General Mode of arrival: ambulatory . Date/Time Provider Initiated Documentation: 01/30/22 12:11 . Limitations to Documentation: no limitations . Information obtained by: patient . HPI Narrative: Patient is a 46-year-old female with a history of lupus who presents for right- sided lower back pain after bending and lifting a bath mat at home yesterday. Patient states she was bending over when she lifted the light weight bath mat and turned and felt sudden onset of right-sided lower back pain. She states the pain is mainly in her right lower back and right upper buttock but denies any radiation of pain into her legs and denies any leg numbness, weakness, bowel or bladder incontinence, abdominal pain, fever or vomiting. She states she takes meloxicam for the past year for her lupus and fibromyalgia and took it last at 8 AM this morning. She did take Tylenol yesterday without relief. Related Data Home Medications Medication Instructions Recorded Confirmed loratadine 10 mg disintegrating 10 mg PO DAILY tab-cap 03/21/13 01/30/22 tablet cholecalciferol (vitamin D3) 50 2,000 unit PO DAILY 08/10/15 01/30/22 mcg (2,000 unit) tablet levonorgestrel 20 mcg/24 hours (7 1 ea INTRAUTERINE ONCE #1 implant 05/30/18 01/30/22 yrs) 52 mg intrauterine device (Mirena) ascorbic acid (vitamin C) 500 mg 500 mg PO DAILY 06/22/18 01/30/22 tablet (Vitamin C) fluoxetine 40 mg capsule 40 mg PO QAM 06/22/18 01/30/22 fluticasone propionate 50 1 spray NS BID PRN 06/22/18 01/30/22 mcg/actuation nasal spray,suspension (Flonase Allergy Relief) gabapentin 300 mg capsule 300 mg PO HS 01/30/22 01/30/22 meloxicam 15 mg tablet 15 mg PO DAILY 01/30/22 01/30/22 methocarbamol 500 mg tablet 500 mg PO Q6H PRN #14 tab 01/30/22 Previous Rx's Medication Instructions Recorded methocarbamol 500 mg tablet 500 mg PO Q6H PRN #14 tab 01/30/22 Allergies Allergy/AdvReac Type Severity Reaction Status Date / Time SEASONAL ALLERGIES Allergy Mild CHEST Uncoded 01/30/22 12:14 CONGESTION, SNEEZING General Stated Complaint: Nk/Back Pain CHEMA: 3 Review of Systems All systems reviewed & are unremarkable except as noted in HPI and below Constitutional Constitutional: Reports as per HPI, Denies chills and Denies fever(s) Eyes Eyes: Denies blurry vision ENT Ears, Nose, Mouth, and Throat: Denies dizziness, Denies sore throat and Denies throat swelling Cardiovascular Cardiovascular: Denies chest pain and Denies dyspnea Respiratory Respiratory: Denies cough and Denies dyspnea Gastrointestinal Gastrointestinal: Denies abdominal pain, Denies diarrhea and Denies vomiting Genitourinary Genitourinary: Denies hematuria and Denies dysuria Musculoskeletal Musculoskeletal: Reports back pain and Denies numbness Integumentary/Breasts Skin/Breast: Denies lesions and Denies rash Neurologic Neurologic: Denies dizziness, Denies localized weakness and Denies numbness Allergic/Immunologic Allergic/Immunologic: Denies throat swelling PFSH All Active Problems (Updated 01/30/22 @ 13:22 by Ava Lunsford DO) Lumbar strain (Acute) Smoker (Acute) Family history of malignant neoplasm of breast (Acute) mother IUD surveillance (Acute) Medical History (Updated 01/30/22 @ 13:22 by Ava Lunsford DO) ANKUSH II (cervical intraepithelial neoplasia II) Depressed Hx LEEP (loop electrosurgical excision procedure), cervix, Surgical History History of delivery Family History Mother Breast cancer Social History Smoking/Tobacco Use Status: Current every day Tobacco Type: cigarettes Smoking risk assessment performed?: Yes Alcohol Intake: current Alcohol Intake frequency: a few times a month Drug use: Daily Substance use type: marijuana Seatbelt use: always Do you feel safe at home: Yes Do you feel safe in your relationship?: Yes Female Reproductive History Menstrual control method: progestin IUCD History History 6 Para 4 Hx # Term Pregnancies 4 Multiple births Hx # Pregnancies Ectopic pregnancies AB induced Hx Number of Living Children AB spontaneous Exam Const General: cooperative, healthy appearing and no acute distress Orientation: alert, awake and oriented x3 HENMT Head: normal to inspection Mouth: oral mucosae normal Eyes General: appearance normal, both eyes and all related structures Neck Neck: normal visual inspection Resp Effort & Inspection: normal respiratory effort and able to speak in complete sentences Auscultation: clear to auscultation bilaterally Cardio Rate: regular rate GI Inspection: normal to inspection Palpation: soft, not firm, no guarding, not rigid and nontender Auscultation: normal bowel sounds Back/Spine/Pelvis Thoracic/Lumbar Spine: thoracic and lumbar spine normal to inspection, No thoracic spinal tenderness and No lumbar spinal tenderness Back/spine/pelvis image: 1. Tenderness to palpation to right lumbar paraspinal region and right upper buttock. There is no evidence of edema, erythema, ecchymosis, rash or lesions. Skin General skin exam: no rashes or lesions noted Neuro General: patient alert, patient awake and patient oriented x3 Motor: muscle tone normal throughout and strength 5/5 throughout DTR's: Rt Patellar: 2+, Lt Patellar: 2+, Rt Ankle: 2+ and Lt Ankle: 2+ Plantar Reflexes: Equivocal: bilateral (negative babinski b/l ) Extrem General: normal to inspection and full ROM Other: B/l DP/PT pulses intact. Psych Appearance: grossly normal Affect: normal affect Course Vital Signs Vital signs: Vital Signs Temperature 97.7 F 01/30/22 12:10 Pulse 78 01/30/22 12:10 Respiratory Rate 18 01/30/22 12:10 Blood Pressure 144/70 H 01/30/22 12:10 Pulse Oximetry 100 01/30/22 12:10 Temperature 97.7 F 01/30/22 12:10 Temperature Source Skin 01/30/22 12:10 Pulse 78 01/30/22 12:10 Respiratory Rate 18 01/30/22 12:10 Respiratory Effort 01/30/22 12:16 Blood Pressure 144/70 H 01/30/22 12:10 Pulse Oximetry 100 01/30/22 12:10 Oxygen Delivery Method Room Air 01/30/22 12:10 Oxygen Flow Rate 0 01/30/22 12:10 Pain Level 8 01/30/22 12:26 Comment 01/30/22 12:10 Lab/Test Results Lab/Test Results: POC- Test(urine) Negative PAWSS Have you Been Recently Intoxicated or Drunk Within the Last 30 days?: No Have you Ever Experienced Previous Episodes of Alcohol Withdrawal?: No Have you ever Experienced Withdrawal Seizures?: No Have you ever Experienced Delirium Tremens(DT)s?: No Have you ever undergone Alcohol Rehabilitation Treatment (i.e, inpt ot outpatient treatment programs)?: No Have you ever Experienced Blackouts?: No Have you ever Combined Alcohol with other Downers within the last 90 days?: No Have you ever Combined Alcohol with any other Substance of Abuse during the last 90 days?: No Positive Blood Alcohol level on Presentation? [PCS.BAL]: No Evidence of Increased Autonomic Activity (i.e. HR>120, tremor, sweating, agitation, nausea)?: No Result: 0
[2022-01-30] MEDS: traMADol 50 MG TAB PO (13:31)
[2022-01-30] MEDS: diazePAM 5 MG TAB PO (13:31)
[2022-01-30] MEDS: Lidocaine 5% Patch 1 PATCH TP (13:34)
== END 2022-01-30 13:59 | disposition home or self-care (01) ==
PROVIDERS: Emergency Provider Physician Assistant; PCP Family Medicine
DX: S39.012A Strain of muscle, fascia and tendon of lower back, initial encounter (principal); X50.1XXA Overexertion from prolonged static or awkward postures, initial encounter
CPT/HCPCS: 81025; 99283

== ENCOUNTER 2024-08-06 15:13 | Outpatient (REF) | payer MEDICAID, SELFPAY ==
[2024-08-06 15:46] LABS: HCT 36.8 % (36.0-46.0); HGB 11.6 g/dL (11.2-15.7); MCH 30.5 pg (27.0-33.0); MCHC 31.5 % (32.0-36.0); MCV 97 fL (80-95); MPV 11.2 fL (8.0-11.0); Platelet Count 240 10^3/uL (130-400); RDW 12.9 % (11.7-14.6); RDW-SD 45.8 fL; WBC 7.29 10^3/uL (4.4-10.8)
[2024-08-06 16:06] LABS: ALT 26 U/L (14-59); AST 16 U/L (15-37); Albumin 3.9 g/dL (3.4-5.0); Alkaline Phosphatase 81 U/L (46-116); Anion Gap 5.4 mmol/L (3-11); BUN 13 mg/dL (7-18); Bilirubin, Total 0.26 mg/dL (0.2-1.0); CO2 31.6 mmol/L (21.0-32.0); CREATININE 0.8 mg/dL (0.55-1.02); Calcium 9.3 mg/dL (8.5-10.1); Chloride 102 mmol/L (98-107); Creatine Kinase 94 U/L (26-192); Estimated GFR 89.71 (mL/min/1.73m2); Glucose 94 mg/dL (74-106); Potassium 4.3 mmol/L (3.5-5.1); Sodium 139 mmol/L (136-145); Total Protein 7.1 g/dL (6.4-8.2)
[2024-08-06 16:14] LABS: ESR 6 mm/hr (0-20)
[2024-08-06 16:48] LABS: Calculated LDL 133 mg/dL (<100); Cholesterol 211 mg/dL (<200); HDL Cholesterol 58 mg/dL (40-60); Triglyceride 100 mg/dL (<150)
== END 2024-08-06 15:14 | disposition home or self-care (01) ==
LOC: NCHCN 15:13
PROVIDERS: PCP Family Medicine; Visit Provider Family Medicine
DX: Z00.00 Encounter for general adult medical examination without abnormal findings (principal)
CPT/HCPCS: 80053; 80061; 82550; 85027; 85652; 84443

== ENCOUNTER 2024-11-01 14:50 | Outpatient (REF) | payer MEDICAID, SELFPAY ==
--- NOTE | 2024-11-01 14:00 | PAPFT_PTH ---
PATIENT: Alessia Harkins LOC: [facility]#:[id number] AGE/SX: 48/F ROOM: RE11/01/[address]: Maria Isabel Oswald V : 1975 BED: DIS: 11/01/2024 SPEC #: [id number] RECD: 11/04/24 13:14 STATUS: RAMIRO RENeelam #: [id number] SONIA: 11/01/24 14:[address]: Maria Isabel Oswald V DEPT: [facility] Cytology RECD BY: Catie Burton Tissues: 1 - CX/ENDOCX FOR PAP SMEARS Procedures: PAP THIN PREP/UVM Screening HPV DNA PROBE Comments: [id number] (HPV 16 & 18/45)
== END 2024-11-01 14:51 | disposition home or self-care (01) ==
LOC: NCHCN 14:50
PROVIDERS: PCP Family Medicine; Visit Provider Family Medicine
DX: Z12.4 Encounter for screening for malignant neoplasm of cervix (principal); Z72.51 High risk heterosexual behavior
CPT/HCPCS: 88142; 87624

== ENCOUNTER 2025-05-16 14:06 | Outpatient (REF) | payer MEDICAID, SELFPAY ==
[2025-05-16 23:12] LABS: FSH 81.3 mIU/mL (See Note); LH 35.3 mIU/mL (See Note)
[2025-05-25 16:38] LABS: Testosterone, Free 0.24 ng/dL (<0.13-0.92)
== END 2025-05-16 14:07 | disposition home or self-care (01) ==
LOC: NCHCN 14:06
PROVIDERS: PCP Family Medicine; Visit Provider Family Medicine
DX: N95.1 Menopausal and female climacteric states (principal)
CPT/HCPCS: 84402; 84403; 83001; 83002